=== PATIENT | male | born 1955 | race Caucasian/White ===

== ENCOUNTER 2016-09-04 22:09 | Inpatient (IN) | payer BC ==
[2016-09-05] MEDS ORDERED: AVAPRO150 M1 PO (00:25)
[2016-09-05] MEDS ORDERED: ACITRETIN25 MG PO (00:55)
== END 2016-09-05 03:58 | DRG 195 ==
LOC: PCUA 22:09
PROVIDERS: ADMIT Internal Medicine
DX: R09.1 Pleurisy (principal); I10 Essential (primary) hypertension; Z86.79 Personal history of other diseases of the circulatory system
CPT/HCPCS: J2270; Q9967